=== PATIENT | female | born 1970 | race Caucasian/White ===

== ENCOUNTER 2023-12-01 16:17 | Emergency (ER) | payer OTHER, SELFPAY ==
[2023-12-01 16:19] VITALS: BP 179/99
[2023-12-01 16:45] VITALS: BMI 25.0
--- NOTE | 2023-12-01 17:10 | ED.GENMED ---
History of Present Illness
General
Chief Complaint: Head Injury
Source: patient
Exam Limitations: none
Time Seen by Provider: 12/01/23 16:58
Nursing documentation reviewed up to this point in time: agreed with
Travel History
Have you had any contact with someone who has COVID-19?: No
Do you have any symptoms of coronavirus? Fever > 100 degrees, chills, cough, shortness of breath, sore throat, loss of taste or smell, muscle aches, or headache?: No
History of Present Illness
History of Present Illness:
53-year-old female presents ER for evaluation. 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 She felt little nauseous at the time reports she only
has very mild headache. No loss of consciousness.
She did not want to come to the ER for evaluation but they wanted her to. She has no other complaints. She is on blood thinners.
Review of Systems
Review of Systems
Allergies reviewed?: Yes
All Other Systems: ROS reviewed and negative except as documented in HPI and ROS
Constitutional: Reports no symptoms; Denies fever
Respiratory: Reports no symptoms
Cardiac: Reports no symptoms
ABD/GI: Reports nausea (pt was nauseous denies now.); Denies vomiting
Musculoskeletal: Reports no symptoms
Skin: Reports no symptoms
Neurological: Reports headache (No loss of consciousness); Denies dizzy or numbness
Psychiatric: Reports no symptoms
Phy Exam
General Physical Exam
General Presentation: no apparent distress
General age: appears stated age
General Skin: warm and dry
General Habitus: normal
General Mental: alert
General Hydration: appears well hydrated
Eye Exam
Eye Exam: PERRL and EOMI
Eye Exam General: PERRL: bilateral and EOM intact: bilateral
Pupil Exam: Bilateral: round and reactive
Neurological Exam
Neurological Exam: alert and oriented x3
Musculoskeletal Exam
Musculoskeletal Exam: full ROM and other (No hematoma to head no bony cervical spine tenderness )
Skin Exam
Skin Exam: normal color and warm/dry
Psychiatric Exam
Psychiatric Exam: normal mood/affect
Course
Vital Signs
Initial and Last Documented VS:
Initial Vital Signs
Temp Pulse Resp BP Pulse Ox
97.8 F 74 18 179/99 100
12/01/23 16:19 12/01/23 16:19 12/01/23 16:19 12/01/23 16:19 12/01/23 16:19
Last Documented Vital Signs
Temp Pulse Resp BP Pulse Ox
97.8 F 74 18 179/99 100
12/01/23 16:19 12/01/23 16:19 12/01/23 16:19 12/01/23 16:19 12/01/23 16:19
MDM/Problems Addressed
Differential Diagnosis Includes:
Not limited to: Head injury, possible concussion
MDM/Problems Addressed:
Symptoms are consistent with head injury. Patient was initially nauseous when incident occurred but now not nauseous neurologically intact not on blood thinners. Patient did not want to come to the ER but she was recommended to buy employer. She
is in no acute distress and has a normal neurologic exam. She is not on blood thinners. I did review head injury instructions with her. She does not want a CAT scan this is not warranted. She will be discharged home with head injury instructions
with outpatient follow-up for work health.
*Pulse Oximetry
Patient hypoxic: no
*Critical Care Note
Total Time (30-74mins, 75-104mins- exclusive of procedures): Not Applicable
ED Attending Note
-
Portions of this chart may have been created with voice recognition software.� Occasional wrong word or��sound alike� substitutions may have occurred due to the inherent limitations of voice recognition software.
Discharge Plan
Departure
Patient Disposition: Home (Routine Discharge)
Date of Disposition: 12/01/23
Time of Disposition: 17:11
Patient with high blood pressure during this ER visit?: Yes
Condition: Fair
Covid-19: Not Applicable
Discharge Problem:
Head injury
Instructions: Head Injury in Adults (DC), BLOOD PRESSURE
Referrals:
Dion Dunn DO [Family Provider] -
Activity Restrictions/Additional Instructions:
You may take Tylenol if needed. Follow-up with work health tomorrow as discussed. Return however to the ER if any worsening of symptoms worsening headache woressening nausea and or vomiting, difficulty walking/balance issues or any further
concerns.
Interventions
Interventions:
*Risk Screen - Suicide Last Done: 12/01/23 16:19
*General Assessment Last Done: 12/01/23 16:19
*Neglect/Abuse Screening Last Done: 12/01/23 16:19
*ED COVID-19 Vaccine History Last Done: 12/01/23 16:19
Discharge Date and Time
Print Language: MALAY
== END 2023-12-01 17:28 | disposition home or self-care (01) ==
LOC: EMR 16:17
PROVIDERS: EMERGENCY PHYSICIAN Emergency Medicine; FAMILY PHYSICIAN Family Medicine
DX: S09.90XA Unspecified injury of head, initial encounter (principal); X58.XXXA Exposure to other specified factors, initial encounter
CPT/HCPCS: 99282

== ENCOUNTER 2024-12-03 16:22 | Emergency (ER) | payer OTHER, SELFPAY ==
[2024-12-03 16:31] VITALS: BP 157/80
[2024-12-03 16:55] LABS: % Basophils 0.3 % (0-2); % Eosinophils 3.1 % (0-6); % Immature Granulocytes 0.3 % (0-0.5); % Lymphocytes 29.9 % (20.5-51.1); % Monocytes 6.9 % (1.7-9.3); % Neutrophils 59.5 % (42.2-75.2); Absolute Eosinophils 0.2 10^3/uL (0-0.7); Absolute Lymphocytes 1.9 10^3/uL (1.2-3.4); Absolute Monocytes 0.4 10^3/uL (0.1-0.6); Absolute Neutrophils 3.8 10^3/uL (1.4-6.5); Hematocrit 38.3 % (37.0-47.0); Hemoglobin 13.4 g/dL (12.0-16.0); Mean Corpuscular Hgb 31.1 pg (27.0-31.0); Mean Corpuscular Volume 88.9 fL (81.0-99.0); Mean Platelet Volume 9.7 fL (7.4-10.4); Nucleated Red Blood Cells % 0 %; Platelet Count 206 10^3/uL (130-400); Red Blood Cell Count 4.31 10^6/uL (4.20-5.40); Red Cell Dist. Width 13.1 % (11.5-14.5); White Blood Cell Count 6.4 10^3/uL (4.8-10.8)
[2024-12-03 17:01] LABS: ALT (SGPT) 20 U/L (0-35); AST (SGOT) 25 U/L (14-36); Albumin 4.5 g/dl (3.5-5.0); Alkaline Phosphatase 111 U/L (38-126); Blood Urea Nitrogen 18 mg/dl (7-17); Calcium 9.8 mg/dl (8.4-10.2); Carbon Dioxide 29 mmol/L (22-30); Chloride 103 mmol/L (98-107); Glucose 114 mg/dl (70-99); Potassium 4.2 mmol/L (3.5-5.1); Sodium 140 mmol/L (135-145); Total Bilirubin 0.6 mg/dl (0.2-1.3); Total Protein 7.2 g/dl (6.3-8.2); eGFR > 60.00
[2024-12-03 17:23] LABS: Erythrocyte Sed Rate 6 mm/hour (0-20)
[2024-12-03 17:41] LABS: C-Reactive Protein < 5.00 mg/L (0.0-10.00)
--- NOTE | 2024-12-03 17:50 | ED.GENMED ---
History of Present Illness
General
Chief Complaint: Visual Problem
Time Seen by Provider: 12/03/24 17:30
History of Present Illness
History of Present Illness:
54-year-old female presents to the emergency department for evaluation of a transient visual anomaly that appeared to be in her left eye occurring just prior to arrival. 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
EKG when the visual anomaly appeared. Describes it as a white light in an arc shape over her left central vision. The object was primarily opaque and did move with eye movement. There was no headache or eye pain but she developed a headache
thereafter. Currently no visual changes, the episode lasted 10 minutes at most. No neck pain or extremity paresthesias.
Review of Systems
Review of Systems
Allergies reviewed?: Yes
All Other Systems: ROS reviewed and negative except as documented in HPI and ROS
Phy Exam
Physical Exam
Physical Exam:
GEN: Well appearing, NAD, WDWN
HEENT: Oral mucosa moist, no scleral icterus, no nasal congestion
Cardiac: Regular rate
Lung: No respiratory distress, no tachypnea
MSK: No gross deformity or injuries
Skin: Good color, no pallor or jaundice, no rashes
Neuro: AO x3; CN II-XII grossly intact. BUE strength 5/5 in all chauhan, sensation intact and symmetric. BLE strength 5/5 in all chauhan, sensation intact and symmetric visual chauhan intact and symmetric bilaterally by confrontation
Psych: Calm, cooperative
Course
Orders/Labs/Results
Orders:
Orders
12/03/24 16:38
Add On- LAB Urgent
Tests Added?: crp, sed rate
12/03/24 16:39
C-Reactive Protein Urgent
Comment: ADD ON
Complete Blood Count/With Diff Urgent
Comprehensive Metabolic Panel Urgent
Erythrocyte Sed Rate Urgent
Comment: ADD ON
Abnormal Lab Results
12/03/24
16:39
MCH 31.1 H pg
(27.0-31.0)
BUN 18 H mg/dl
(7-17)
Glucose 114 H mg/dl
(70-99)
12/03/24 16:39
12/03/24 16:39
Vital Signs
Initial and Last Documented VS:
Initial Vital Signs
Temp Pulse Resp BP Pulse Ox
98.0 F 80 18 157/80 100
12/03/24 16:31 12/03/24 16:31 12/03/24 16:31 12/03/24 16:31 12/03/24 16:31
Last Documented Vital Signs
Temp Pulse Resp BP Pulse Ox
98.0 F 80 18 157/80 100
12/03/24 16:31 12/03/24 16:31 12/03/24 16:31 12/03/24 16:31 12/03/24 16:31
MDM/Problems Addressed
MDM/Problems Addressed:
Patient is asymptomatic at this time. This most likely represents an ocular migraine, do not see an indication for CT of the head given her lack of stroke risk factors and rapidly resolving symptoms.
*Critical Care Note
Total Time (30-74mins, 75-104mins- exclusive of procedures): Not Applicable
ED Attending Note
-
Portions of this chart may have been created with voice recognition software.� Occasional wrong word or��sound alike� substitutions may have occurred due to the inherent limitations of voice recognition software.
Discharge Plan
Departure
Patient Disposition: Home (Routine Discharge)
Date of Disposition: 12/03/24
Time of Disposition: 17:55
Patient with high blood pressure during this ER visit?: No
Discharge Problem:
Ocular migraine
Instructions: Migraines (DC)
Interventions
Interventions:
*Risk Screen - Suicide Last Done: 12/03/24 16:34
*General Assessment Last Done: 12/03/24 16:34
*Neglect/Abuse Screening Last Done: 12/03/24 16:34
*ED COVID-19 Vaccine History Last Done: 12/03/24 16:34
*Nursing Disposition Last Done: 12/03/24 18:12
ED- Neurological Assessment Last Done: 12/03/24 17:34
ED-EENT Assessment Last Done: 12/03/24 17:34
ED Swallowing Screen Last Done: 12/03/24 17:35
Discharge Date and Time
Discharge Date/Time: 12/03/24 18:12
Print Language: [email or web address]
== END 2024-12-03 18:12 | disposition home or self-care (01) ==
LOC: EMR 16:22
PROVIDERS: EMERGENCY PHYSICIAN Emergency Medicine
DX: G43.809 Other migraine, not intractable, without status migrainosus (principal)
CPT/HCPCS: 99283; 80053; 85025; 85652; 86140